=== PATIENT | female | born 1955 | race Two or more races ===

== ENCOUNTER 2024-09-01 14:09 | Emergency (ER) | payer OTHER, MEDICAID ==
[~2024-09-01] VITALS: Ht 160 cm; Wt 63.6 kg
[2024-09-01 14:12] VITALS: BP 181/92; PULSE 110; RESP 16; O2SAT 100
[2024-09-01] MEDS ORDERED: HYDROcodone-ACET 5/325MG TAB PO ONE (15:30)
[2024-09-01] MEDS ORDERED: KETOROLAC TROMETH 60MG/2ML VIAL IM ONE (15:30)
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
--- NOTE | 2024-09-01 16:18 | DVH ---
EXAM: XY FACIAL BONES COMPLETE CLINICAL HISTORY: None COMPARISON: None TECHNIQUE: XY FACIAL BONES COMPLETE Findings/Impression: 3 views of the facial bones. There is no evidence of an acute fracture, dislocation, blastic, or lytic lesions. No radiopaque foreign bodies. The paranasal sinuses, mastoid air cells, and sella turcica are within normal limits. No superficial soft tissue abnormalities.
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
[2024-09-01] MEDS ORDERED: IBUP1TAB5 PO (17:37)
[2024-09-01] MEDS ORDERED: HYDR-4902 PO (17:37)
== END 2024-09-01 20:23 | disposition home or self-care (01) ==
LOC: ER 14:09 → EDBD 14:09 → ER 20:23
DX: S00.83XA Contusion of other part of head, initial encounter (principal); S50.12XA Contusion of left forearm, initial encounter; S63.592A Other specified sprain of left wrist, initial encounter; I10 Essential (primary) hypertension; V49.40XA Driver injured in collision with unspecified motor vehicles in traffic accident, initial encounter; Y93.I9 Activity, other involving external motion; Y92.488 Other paved roadways as the place of occurrence of the external cause; Y99.8 Other external cause status
CPT/HCPCS: 73060; 73090; 73110